=== PATIENT | male | born 1960 | race Caucasian/White ===

== ENCOUNTER 2018-04-02 05:41 | Inpatient (IN) | payer OTHER ==
--- NOTE | 2018-04-02 06:11 | POSTANESTH ---
Post Anesthetic Evaluation Cardiovascular Status: Normal, Stable Respiratory Status: Normal, Stable Level of Consciousness/Mental Status: Can Participate in Eval, Mildly Sleepy, Arousable Pain Control: Adequate, Prn Tx Ordered Nausea/Vomiting Control: Adequate, Prn Tx Ordered Complications Possibly Related to Anesthesia: None Noted (Moving all extremities.)
[2018-04-02] MEDS ORDERED: DIAZEPAM 5 MG TAB PO ONE ×2 (06:14→12:15)
--- NOTE | 2018-04-02 06:14 | PDANEPAE ---
ANE History of Present Illness 58 yo male with spinal stenosis s/p lumbar XLIF 01/19 now for ACDF. ANE Past Medical History - Cardiovascular History Hx Hypertension: Yes Hx Arrhythmias: No Hx Chest Pain: No Hx Coronary Artery / Peripheral Vascular Disease: No Hx CHF / Valvular Disease: No Hx Palpitations: No - Pulmonary History Hx COPD: No Hx Asthma/Reactive Airway Disease: No Hx Recent Upper Respiratory Infection: No Hx Oxygen in Use at Home: No Hx Sleep Apnea: No Sleep Apnea Screening Result - Last Documented: Positive Pulmonary History Comment: kendrick triggers - Neurologic History Hx Cerebrovascular Accident: No Hx Seizures: No Hx Dementia: No Neurologic History Comment: spinal surgeries on 01/29/18 and 01/31/18 with mele - Endocrine History Hx Diabetes: No Hypothyroid: No Hyperthyroid: No Obesity: mild - Renal History Hx Renal Disorders: No - Liver History Hx Hepatic Disorders: No - Neurological & Psychiatric Hx Hx Neurological and Psychiatric Disorders: No - Cancer History Hx Cancer: No - Congenital Disorder History Hx Congenital Disorders: No - GI History Hx Gastrointestinal Disorders: No - Other Health History Other Health History: wears glasses. wears bilateral hearing aides - Chronic Pain History Chronic Pain: Yes (BACK PAIN CHRONIC , KNEE,HIP, NECK, HANDS) - Surgical History Prior Surgeries: 01/31/18 l2-5, l5-s1 lumbar fusion, instrumentation revision with mele. 01/29/18 left l2-3, l3-4 xlif with mele. KNEE SCOPE R X2. R SHOULDER SCOPE X2. L SHOULDER SCOPE. SPINAL SURGERY X3 LUMBAR. BUNIONECTOMY DENA. COLONOSCOPIES. TENNIS ELBOW ANE Review of Systems Review of systems is: negative Review of Systems: - Exercise capacity METS (RN): 4 METS - Systems Muscolosketal: Reports: neck pain (brain with turning head to the L, no pain with flexion/extension) ANE Patient History - Allergies Allergies/Adverse Reactions: No Known Allergies Allergy (Verified 03/20/18 15:25) - Home Medications Home Medications: Lisinopril [Zestril 20 mg (*)] 20 mg PO DAILY 01/23/18 [Last Taken 1 Day Ago ~] amLODIPine BESYLATE [Norvasc 5 mg (*)] 5 mg PO DAILY 01/23/18 [Last Taken 05:00] Acetaminophen [Tylenol 325mg (*)] 325 mg PO Q6HRS PRN 03/19/18 [Last Taken 1 Day Ago ~04/01/18] Methocarbamol [Robaxin 500 mg (*)] 500 mg PO DAILY PRN 03/19/18 [Last Taken 1 Day Ago ~04/01/18] Multivitamins [Multivitamin (*)] 1 each PO DAILY 03/19/18 [Last Taken 2 Weeks Ago ~03/19/18] - NPO status NPO Status: no food or drink >8 hours - Anes Hx Anes Hx: no prior problems Hx Anesthesia Complications (with details): with GA in 01/2018 - Smoking Hx Smoking Status: Former smoker - Alcohol Use Alcohol Use: None - Family Anes Hx Family Anes Hx: neg - N/A Family Hx Anesthesia Complications: none ANE Labs/Vital Signs - Labs - CBC HGB: 14 HCT: 41 Platelet Count: 391 - Labs - BMP Glucose: 103 BUN: 9 Creatinine: 0.6 - Vital Signs Vital Signs: reviewed preoperatively; see RN documention for details Blood Pressure: 129/89 Height: 172.72 cm Weight: 92.986 kg ANE Physical Exam - Airway Neck exam: decreased ROM Mallampati Score: Class 2 Mouth exam: normal dental/mouth exam - Pulmonary Pulmonary: clear to auscultation - Cardiovascular Cardiovascular: regular rate and rhythym - ASA Status ASA Status: II ANE Anesthesia Plan Anesthesia Plan: general endotracheal anesthesia
[2018-04-02] MEDS ORDERED: LIDOCAINE 1% 2 ML INJ ID PRN (06:17)
[2018-04-02] MEDS ORDERED: LR 1,000 ML IV ONE (06:17)
[2018-04-02] MEDS ORDERED: BACITRACIN 50,000 UNITS/10 ML SYR IRR ONE (06:36)
[2018-04-02] MEDS ORDERED: BUPIVACAINE/EPI 0.5% 30 ML SDV ONE (06:36)
[2018-04-02] MEDS ORDERED: TRANEXAMIC ACID 1,000 MG in NS 100 ML IV ONE (06:47)
[2018-04-02] MEDS ORDERED: ceFAZolin 2 GM/DEXTROSE 100 ML IV ONE (06:47)
--- NOTE | 2018-04-02 06:48 | PDHPUP ---
History & Physical Update H&P update statement: This history and physical update is based on an assessment of the patient which was completed after admission or registration (within 24 hours), but prior to the surgery/procedure. H&P update: H&P reviewed & patient examined, no change in patient's condition since H&P completed
[2018-04-02] MEDS ORDERED: LIDOCAINE 0.5% 50 ML SDV ONE (06:56)
[2018-04-02] MEDS ORDERED: ROCURONIUM 50 MG/5 ML VIAL ONE (06:57)
[2018-04-02] MEDS ORDERED: DEXAMETHASONE 4 MG/ML VIAL ONE (06:57)
[2018-04-02] MEDS ORDERED: LIDOCAINE 2% 2 ML INJ ONE (06:57)
[2018-04-02] MEDS ORDERED: PROPOFOL/EMULSION 500 MG/50 ML BOTTLE IV ONE ×2 (06:58)
[2018-04-02] MEDS ORDERED: REMIFENTANIL HCL 1 MG VIAL ONE (06:58)
[2018-04-02] MEDS ORDERED: fentaNYL 100 MCG/2 ML INJ ONE ×3 (06:58→10:34)
[2018-04-02] MEDS ORDERED: VASOPRESSIN 20 UNIT/ML VIAL ONE (07:49)
[2018-04-02] MEDS ORDERED: SURGIFLO MATRIX KIT WITH THROMBIN 8 ML TP ONE (08:35)
[2018-04-02] MEDS ORDERED: PROPOFOL 200 MG/20 ML VIAL ONE (10:02)
[2018-04-02] MEDS ORDERED: LR 500 ML IV PRN (10:08)
[2018-04-02] MEDS ORDERED: PROMETHAZINE HCL 25 MG/ML INJ IVP PRN (10:08)
[2018-04-02] MEDS ORDERED: NALOXONE HCL 0.4 MG/ML INJ IVP PRN (10:08)
[2018-04-02] MEDS ORDERED: fentaNYL 100 MCG/2 ML INJ IVP PRN (10:08)
[2018-04-02] MEDS ORDERED: ONDANSETRON 4 MG/2 ML VIAL ONE (10:08)
--- NOTE | 2018-04-02 10:24 | SUROPNOTE ---
[facility] Operative Report - Surgery Date: 04/02/18 Pre-operative Diagnosis: Cervical Degenerative Disc Disease Cervical Stenosis Post-operative Diagnosis: Same Procedure: C3-6 Anterior Cervical Discectomy and Fusion with Instrumentation Structural use of morselized local autograft bone Structural use of allograft Use of intra-operative fluoroscopy Use of intra-operative neuromonitoring, including EMG, MEP, and SSEP modalities Use of a surgical microscope Surgeon: Misael Canas MD Automatic Spinning Lathe Setter: Bernie Bingham PA-C Anesthesia: General endotracheal anesthesia Findings: As expected degenerative disc disease and stenosis Estimated Blood Loss: 50mL Drains: Hemovac Specimens: None Complications: None Condition: Transferred to PACU in stable condition. Implants: DePuy Plate: 48mm Screws: 18mm at C3 and C6, 16mm at C4 and C5 Interbody cage: Carbon Bengal cage 5mm x 3, used structurally in the disc spaces Allograft: 1mL, used structurally in the disc space Autograft: local bone from end plate preparation used structurally in the interbody cage. Indications: The patient was seen in my office and diagnosed with cervical degenerative disc disease and cervical stenosis. I have explained all options of treatment for the patient, and the patient has elected to proceed with operative management. I have explained all risks, benefits, and alternatives of the proposed procedure. The risks that we have discussed include , blindness, bleeding, nerve damage, infection, dural tear, failure of surgery to alleviate pre- operative symptoms, nonunion, and possible need for further operation. I also discussed in detail the possibility of dysphagia, superior laryngeal and/or hypoglossal nerve injury, carotid or vertebral artery damage, Horners syndrome, C5 palsy specifically, and paralysis. I have described the surgical procedure using an acrylic model. I explained separately the risks of allograft, including infection and disease transfer. In addition to the aforementioned procedure, I discussed with the patient that other procedures may be indicated during the course of surgery. The patient expressed understanding of this and agreed to move forward with operative management. Pre-surgical: The proposed incision site was marked in the pre-operative holding area by me. The patient was then taken to the operating room in stable condition. Following smooth induction of general anesthesia, the patient was positioned supine on a Abel table with all down surfaces well-padded. A small towel was placed between the scapulae and the neck was placed in slight extension with the head resting on a donut pillow. The patient was then prepped and draped in the usual sterile fashion. Pre-operative antibiotics and tranexamic acid were administered within one hour of the incision. A surgical timeout was performed, and all parties involved in the procedure were in agreement on the correct patient, location, and procedure to be performed. Approach: The proposed levels were identified using C-arm fluoroscopy and the skin was marked for the proposed incision. Based on anatomy and pathology, a right-sided approach was taken. A natural skin fold was selected near the proposed incision site to allow for optimal cosmesis, reaching from the medial border of the sternocleidomastoid to near midline. The skin was then incised sharply through the dermis. Bipolar cautery was used to dissect the subdermal fat layer down to the platysma and to coagulate bleeding vessels. A small rent was created in the platysma and the muscle was spread in line with the fibers. A Metzenbaum scissors was used to spread soft tissues in a plane just deep to the platysma. Using a forceps, the layer just deep to the platysma was defined further using a Metzenbaum scissors as a dissector. A self-retractor was then placed to allow for further visualization. The medial border of the sternocleidomastoid muscle was identified and retracted laterally. The carotid sheath was identified and retracted laterally. The strap muscles and midline structures were retracted medially, and any crossing vessels were coagulated or tied off with 3-0 silk suture, depending on their caliber and location in relation to the anticipated fusion levels. The pretracheal fascia and longus colli muscles were then identified. Secondary pause and retraction: An 18-gauge spinal needle was then bent twice to allow the terminal 1cm of the needle to be inserted safely into a disc space. This was noted to be the C4/5 disc space. A lateral radiograph was taken for identification purposes. A secondary spinal pause was then performed, and the level was confirmed with all parties participating in the operation. Once confirmed, the needle was removed and the vertebra was marked using electrocautery. A cervical self-retracting system was selected with appropriate depth and placed into the surgical field. Care was taken to retract and protect all areas of the esophagus without placing undue pressure for an extended period of time. The endotracheal cuff was then deflated and re-inflated to a lower pressure until tracheal retraction was removed. Disc preparation: The longus colli muscles were then gently elevated using a periosteal elevator on either side to allow for disc preparation. Small vessels were coagulated using bipolar cautery. A Wadley pin was then placed in each vertebral body above and below the disc space to be fused. Anterior osteophytes were removed using a Leksell rongeur. A Wadley pin distractor was then applied to both and gently distracted. A disc knife was then used to incise the anterior annulus, using the uncinated process as both a lateral border to dissection and protection for the vertebral artery. The annulus and underlying nucleus was removed using curettes a disc punch. The posterior longitudinal ligament was then identified and removed from the posterior vertebral bodies using Kerrison rongeurs. A curved curette was used to remove any posterior osteophytes that could be palpated. Pedicles of the caudal level were identified and a cervical Shelby ball was used to palpate the foraminae. Using the uncinates as landmarks , a high-speed aster was used to remove any remaining cartilage from the endplates create an adequate box in the disc space for interbody cage placement. Once adequate decompression and interspace preparation was achieved, attention was turned toward implant placement. Implant placement: Trial implants used for sizing were introduced into the prepared disc space in a sequential fashion. Once the appropriate size trial implant was selected, the trial was removed. Autograft bone was collected from the burring process and used for fusion. Based on the trial implant, the same size 48mm final implant was packed with local autograft bone and gently tamped into place. The Wadley pin distractor and Wadley pins were then removed. Anterior cervical plates were trialed and the appropriate size plate was applied across the disc space to be fused. Based on pre-surgical templating, helicopter pilot holes were drilled through the plate and into the vertebral bodies in an appropriate trajectory for the anticipated screws. Based on pre-surgical templating of the anterior-to- posterior length of the vertebral body, the appropriate screw sizes were selected (16 and 18mm). Screws were then placed in star-pattern, and the secondary locking mechanism was tightened using a torque-limited screwdriver. Of note, there was adhesion of the PLL to the dura at the C3/4 level, and a small dural leak was noted. based on the small nature of the hole, and the location, this was deemed unrepairable. Retractor removal: The superior laryngeal nerve and hypoglossal nerve were intentionally not visualized during the operation. The esophagus was inspected carefully while all retractors were removed, and there was no sign of injury or damage to the esophagus. Closure: The surgical field was then copiously irrigated with sterile saline. One gram of vancomycin powder was then applied to the surgical field. A small drain was placed deep to the platysma and brought out of the skin laterally, in line with the incision. The drain was then sewn to skin. 2-0 interrupted sutures were used to repair the platysma. A separate 2-0 monofilament suture was then used to approximate the subdermal tissues, and the subcutaneous layer was repaired with a 3-0 monofilament in a running fashion. All sutures used were absorbable. Topical adhesive was then applied to the skin and allowed to dry. A sterile island dressing was applied over the surgical incision. A surgical count was performed before initiation of closure and following the procedure, and all were correct. I was present for the entire procedure. Surgical microscope use: A surgical microscope was utilized throughout the decompressive portion of this case. This was deemed necessary for safe and accurate surgical decompression of affected nerve roots. Neuromonitoring: SSEP, MEP and EMG were used throughout the case from incision until the beginning of closure. There were no significant changes throughout the case, and SSEP signals were at their pre-surgical baseline levels before surgical closure was initiated. assistant teacher: A surgical services assistant was used throughout the case, and deemed necessary for safe neural retraction, hemostasis, and suction. Recovery: The patient was extubated uneventfully in the operating room. The patient was taken to the recovery room in stable condition. Sequential compression devices for VTE prophylaxis were applied to the patients lower extremities, and were ordered to be used while the patient was non-ambulatory. Chemical VTE prophylaxis was considered to be contraindicated for this patient because of the risk of bleeding near the epidural space. Of note, the patient's elevated BMI over 31 made the case more difficult, including soft tissue dissection, retraction, and safe tissue handling. This added an additional 30 minutes of operative time to the case, and a 22 modifier will be added. Jose Antonio Canas MD
[2018-04-02] MEDS ORDERED: BISACODYL 10 MG SUPP PR PRN (10:29)
[2018-04-02] MEDS ORDERED: ONDANSETRON DISINTEGRATING 4 MG TAB PO PRN (10:29)
[2018-04-02] MEDS ORDERED: FAMOTIDINE 20 MG TAB PO PRN (10:29)
[2018-04-02] MEDS ORDERED: LACTULOSE 20 GM/30 ML UDCUP PO PRN (10:29)
[2018-04-02] MEDS ORDERED: diphenhydrAMINE 25 MG CAP PO PRN (10:29)
[2018-04-02] MEDS ORDERED: POLYETHYLENE GLYCOL 3350 17 GM PKT PO PRN (10:29)
[2018-04-02] MEDS ORDERED: MAGNESIUM HYDROXIDE 30 ML UDCUP PO PRN (10:29)
[2018-04-02] MEDS ORDERED: ONDANSETRON 4 MG/2 ML VIAL IVP PRN (10:29)
--- NOTE | 2018-04-02 10:29 | POSTOPPROG ---
Post Op Note Date of Operation: 04/02/18 Surgeon: Misael Canas Rn Homecare: Bernie Bingham PA-C Anesthesiologist: Dr. Veda Saini Anesthesia: GET(General Endotracheal) Pre-op Diagnosis: cervical stenosis, cervical degenerative disc disease Post-op Diagnosis: cervical stenosis, cervical degenerative disc disease Indication: cervical stenosis Procedure: C3-6 ACDF Inf/Abcess present in the surg proc area at time of surgery?: No EBL: Minimal Complications: none
[2018-04-02] MEDS ORDERED: METHOCARBAMOL 500 MG TAB PO PRN (10:39)
--- NOTE | 2018-04-02 10:41 | SOAPPROG ---
SOAP Progress Note Assessment/Plan: Assessment/Plan: 58y/o male s/p C3-6 ACDF for cervical stenosis - stable and doing well - orders as written - c-collar at all times - TEDs/SCDs, no chemoprophylaxis given location of surgery site - monitor closely for dysphagia - JASMIN in place - call with any issues or concerns 04/02/18 10:39 Subjective: Having neck pain, arms feel fine Objective: Vital Signs Temp Pulse Resp BP Pulse Ox 36.5 C 85 18 129/89 H 94 04/02/18 06:25 04/02/18 06:25 04/02/18 06:25 04/02/18 06:51 04/02/18 06:25 NAD, no distress waking from anesthesia, VSS strength 5/5=B in deltoid, bicep, tricep, wrist extension and flexion, intrinsics and behavioral assistant dorsiflexion, plantarflexion 5/5=B sensation intact in BLE, BUE incision clean, dressed; JASMIN in place ICD10 Worksheet Patient Problems: Problems Problem Status Onset Spinal stenosis Acute Spinal stenosis Acute
--- NOTE | 2018-04-02 11:35 | PDMN ---
Medical Necessity Medical necessity: AUTH# [id number] APPROVED FOR CPT 84494, 19641, 95938, 50442 , [id number], 42356 DONE INPNT LOS 1 DAY [facility] [place] S[facility] cervical fusion OP: ACDF C3- 6
[2018-04-02] MEDS ORDERED: GABAPENTIN 100 MG CAP PO ONE (12:02)
[2018-04-02] MEDS ORDERED: DIAZEPAM 10 MG TAB PO ONE (12:03)
[2018-04-02] MEDS ORDERED: DIAZEPAM 5 MG TAB ONE (12:04)
[2018-04-02] MEDS ORDERED: GABAPENTIN 400 MG CAP PO ONE (12:15)
[2018-04-02] MEDS: oxyCODONE IR 5 MG TAB PO PRN ×3 (12:56→20:22)
[2018-04-02] MEDS: ACETAMINOPHEN 500 MG TAB PO SCH ×2 (12:56→22:29)
[2018-04-02] MEDS: ceFAZolin 2 GM/DEXTROSE 100 ML IV SCH (14:50)
[2018-04-02] MEDS: CYCLOBENZAPRINE 10 MG TAB PO PRN (14:50)
[2018-04-02] MEDS: SENNOSIDES/DOCUSATE SODIUM TAB PO SCH (20:21)
[2018-04-03] MEDS: oxyCODONE IR 5 MG TAB PO PRN ×5 (00:02→12:21)
[2018-04-03] MEDS: ceFAZolin 2 GM/DEXTROSE 100 ML IV SCH (00:02)
[2018-04-03] MEDS: METHOCARBAMOL 500 MG TAB PO PRN ×2 (00:02→11:56)
[2018-04-03] MEDS: ACETAMINOPHEN 500 MG TAB PO SCH (05:56)
[2018-04-03 07:37] VITALS: BP 137/85
[2018-04-03] MEDS ORDERED: LISINOPRIL 20 MG TAB PO SCH (09:00)
[2018-04-03] MEDS ORDERED: ATORVASTATIN CALCIUM 20 MG TAB PO SCH (09:00)
[2018-04-03] MEDS ORDERED: amLODIPine BESYLATE 5 MG TAB PO SCH (09:00)
[2018-04-03] MEDS: SENNOSIDES/DOCUSATE SODIUM TAB PO SCH (09:17)
[2018-04-03] MEDS: CYCLOBENZAPRINE 10 MG TAB PO PRN (09:17)
--- NOTE | 2018-04-03 11:10 | ASMTLACE ---
LACE Length of stay for Answers: 2 days current admission Acuity / Level of Answers: Yes Care: Did the patient have an inpatient admission? Comorbidities - select Answers: Opioid dependence all that apply / Chronic pain Other Notes: HTN # of Emergency department Answers: 0 visits in the last 6 months Score: 10 Date Signed: 04/03/2018 11:10 AM Electronically Signed By:AIRAM Edwards
--- NOTE | 2018-04-03 11:12 | ASMTCMCOM ---
CM Note CM Note Notes: Pt s/p planned surgery for cervical stenosis. Pt resides with spouse. PT rec home/outpatient. Pt medically stable for d/c, no CM d/c needs identified. Date Signed: 04/03/2018 11:11 AM Electronically Signed By:AIRAM Edwards
--- NOTE | 2018-04-03 11:41 | GDS ---
The patient underwent an uneventful C3 to C6 ACDF on 04/02/2018. He recovered quite well from the op eration. He notes that the subjective weakness he was having in his hands, more so his left hand, as well as the numbness and tingling he was having, is all completely resolved at this time. Moving forward, the patient knows he is not to bend, lift, or twist the neck. He is to leave the bra ce off for eating and can leave it off if he is in a seated position. He has been given multiple jairo n medications to be taken orally. He has my cell phone if he has any further questions. He also has a postsurgical spine booklet with all instructions that he has gone over with me. I would like him to hold his aspirin for another week while he is home to avoid any sort of bleeding. His drain was r emoved on the day after the operation. /[id number]/MODL
--- NOTE | 2018-04-03 13:16 | GPROG ---
I saw and evaluated the patient this morning. Overall, he is doing quite well. He reports some mild dysphagia, but it seems to be well within normal limits. He does have some shoulder pain, which is again to be expected with the cages placed from an ACDF procedure. PHYSICAL EXAM: He has no sensorimotor or vascular deficits, and he notes that his hands are improved from before surgery with regard to numbness and subjective weakness. IMPRESSION: Postoperative day 1 status post C3 to C6 anterior cervical discectomy and fusion. ASSESSMENT/PLAN: The patient has done quite well from the operation. I think he can go home as long as his pain is well controlled. Will switch him to Dilaudid as it has been more effective for him. Will change his prescription to oral Dilaudid. He knows to leave the brace on in the meantime, and we will see him back at 2 weeks. /[id number]/MODL
== END 2018-04-03 12:23 | disposition home or self-care (01) | DRG 472 ==
LOC: F3N 05:41
PROVIDERS: ADMIT Orthopaedic Surgery Orthopaedic Surgery of the Spine; ATTEND Orthopaedic Surgery Orthopaedic Surgery of the Spine
PROC: 0RG20A0 Fusion of 2 or more Cervical Vertebral Joints with Interbody Fusion Device, Anterior Approach, Anterior Column, Open Approach (ICD-10-PCS; principal; 2018-04-02 07:15)
PROC: 01N10ZZ Release Cervical Nerve, Open Approach (ICD-10-PCS; principal; 2018-04-02 07:15)
PROC: 00NW0ZZ Release Cervical Spinal Cord, Open Approach (ICD-10-PCS; principal; 2018-04-02 07:15)
PROC: 4A1004G Monitoring of Central Nervous Electrical Activity, Intraoperative, Open Approach (ICD-10-PCS; principal; 2018-04-02 07:15)
DX: M48.02 Spinal stenosis, cervical region (principal); G96.11 Dural tear; I10 Essential (primary) hypertension; G47.33 Obstructive sleep apnea (adult) (pediatric)
CPT/HCPCS: 97161-GP; 97165-GO; C1713; G8978-GP-CI; G8979-GP-CI; G8980-GP-CI; G8987-GO-CI; G8988-GO-CI; G8989-GO-CI; J0690; J1100; J2270; J2405; J2704; J3010